=== PATIENT | female | born 1935 | race Caucasian/White ===

== ENCOUNTER → 2019-06-14 | Outpatient (CLI) | payer MEDICARE, BC ==
--- NOTE | 2019-06-14 09:53 | RAD ---
EXAM: Left hand, 3 views. HISTORY: Cellulitis. Pain. COMPARISON: None. FINDINGS: 3 views of the left hand are obtained. There is no acute fracture, dislocation or subluxation. There is slight deformity of the ulnar styloid which may be developmental or the sequela of remote trauma. There is second finger soft tissue swelling and overlying bandage material. No foreign body is seen. No osteitis is seen. IMPRESSION: Left second finger soft tissue swelling. There is no acute osseous finding. Electronically signed by: Tere Elena MD (06/14/2019 9:50 AM) [facility]
== END ==
LOC: DXRAD 08:55
PROVIDERS: ATTEND Family Medicine
DX: M25.442 Effusion, left hand (principal); L03.012 Cellulitis of left finger
CPT/HCPCS: 73130

== ENCOUNTER 2020-09-07 19:55 | Emergency (ER) | payer MEDICARE, BC ==
[~2020-09-07] VITALS: Ht 152.4 cm; Wt 40.9 kg
[~2020-09-07 19:55] MED LIST: HYDR-2759 PO
--- NOTE | 2020-09-07 21:10 | PHYS DOC ---
Past History Past Medical History: High Cholesterol, Hypertension, Hypothyroid (AISSATOU PATEL APRN) Past Surgical History: Appendectomy (AISSATOU PATEL APRN) Alcohol Use: None (AISSATOU PATEL APRN) General Adult EDM: Chief Complaint: MECHANICAL FALL HPI: HPI: Patient is a 84-year-old female who presents with right arm, leg, head pain after a fall at home. Patient states "I was standing up at the table when all of a sudden my legs went out and I fell on the ground". "When I fell I landed on my right side and I also hit the back of my head". Fall was witnessed by family. "I did not lose consciousness". Patient denies being on blood thinners. Patient is alert and oriented x3. Patient states that she was here on the this month for a fall and had just recently started PT. Patient reports pain is exacerbated by walking. Patient denies taking anything for pain or needing anything at this time. (AISSATOU PATEL APRN) Review of Systems: Review of Systems: Constitutional: Denies fever or chills Eyes: Denies change in visual acuity HENT: Denies nasal congestion or sore throat Respiratory: Denies cough or shortness of breath Cardiovascular: Denies chest pain or edema GI: Denies abdominal pain, nausea, vomiting, bloody stools or diarrhea : Denies dysuria Musculoskeletal: Reports right hip, right arm pain Integument: Denies rash Neurologic: Denies headache, focal weakness or sensory changes Endocrine: Denies polyuria or polydipsia Lymphatic: Denies swollen glands Psychiatric: Denies depression or anxiety (AISSATOU PATEL APRN) Allergies: Allergies: Allergies Coded Allergies Type Severity Reaction Last Updated Verified codeine Allergy Unknown 09/03/20 Yes (AISSATOU PATEL APRN) Physical Exam: PE: Constitutional: Well developed, well nourished, no acute distress, non-toxic appearance. [] HENT: Normocephalic, hematoma- posterior head Eyes: PERRLA, EOMI, conjunctiva normal, no discharge. [] Neck: Normal range of motion, midline tenderness of neck Cardiovascular:Heart rate regular rhythm, no murmur [] Lungs & Thorax: Bilateral breath sounds clear to auscultation [] Abdomen: Bowel sounds normal, soft, no tenderness, no masses, no pulsatile m asses. [] Skin: Left forearm multiple skin tears Back: No tenderness, no CVA tenderness. [] Extremities: Right arm tenderness, ROM intact, no edema. [] Neurologic: Alert and oriented X 3, normal motor function, normal sensory function, no focal deficits noted. [] Psychologic: Affect normal, judgement normal, mood normal. [] (AISSATOU PATEL APRN) Current Patient Data: Vital Signs: Vital Signs Date Time Temp Pulse Resp B/P (MAP) Pulse Ox O2 Delivery O2 Flow Rate FiO2 09/07/20 20:14 98.2 82 16 144/67 (92) 98 (AISSATOU PATEL APRN) EKG: EKG: [] (AISSATOU PATEL APRN) Radiology/Procedures: Radiology/Procedures: []Exam: CT head and cervical spine without contrast INDICATION: Fall, headache, neck TECHNIQUE: Sequential axial images through the head and cervical spine were o btained without the administration of IV contrast. Exposure: One or more of the following in the visualized dose reduction tech niques were utilized for this examination: 1. Automated exposure control 2. Adjustment of the MA and/or KV according to patient size 3. Use of iterative of reconstructive technique Comparisons: None FINDINGS: Head: Small amount of subarachnoid hemorrhage noted within a sulcus of the right frontal lobe superiorly seen on series 2 image 22. There is no midline shift or sulcal effacement. No acute vascular territory infarction is identified. Hanna-white distinction is preserved. The ventricular system is within normal limits without compression hydrocephalus. The basal cisterns are well maintained. Extra-axial cranial soft tissue scalp contusion overlying the right parietal region. The visualized portions of the paranasal sinuses and mastoid air cells are well-pneumatized. No acute fractures. Cervical spine: Straightening of cervical spine which may positional. Vertebral body heights are well-maintained. Fracture to the cervical spine is not identified. Multilevel spondylotic change in cervical spine with degenerative disc disease greatest at C5-C6 and C6-C7. Mild bilateral facet arthropathy noted in cervical spine. Visualized paraspinal soft tissues are unremarkable. IMPRESSION: 1. Small amount of subarachnoid hemorrhage noted within a sulcus of the right frontal lobe superiorly. No significant mass effect. 2. Negative CT C-spine for acute traumatic injury. XR RT TIBIA+FIBULA History: Reason: Fall, pelvis, right hip, upper and lower leg pain / Spl. Instructions: / History: Technique: 2 views right tibia and fibula Comparison: None. Findings: Normal alignment. No fracture. Impression: 1. No acute osseous abnormality. Electronically signed by: Juan Daniel Caro DO (09/07/2020 10:18 PM) [facility] XR SHOULDER_RIGHT 2+ VIEWS, XR HUMERUS_RT 2 VIEWS History: Reason: Fall, rt shoulder, upper and lower arm pain, hx fall 08/26/20 w/fx / Spl. Instructions: / History: Technique: 3 views right shoulder and 2 views right humerus Comparison: August 26, 2020 Findings: Right proximal humerus fracture with increased displacement of greater tuberosity fracture fragment. No dislocation. No new fracture. Impression: 1. Right proximal humerus fracture with increased displacement of greater tuberosity fracture fragment. Electronically signed by: Juan Daniel Caro DO (09/07/2020 10:14 PM) [facility] XR SHOULDER_RIGHT 2+ VIEWS, XR HUMERUS_RT 2 VIEWS History: Reason: Fall, rt shoulder, upper and lower arm pain, hx fall 08/26/20 w/fx / Spl. Instructions: / History: Technique: 3 views right shoulder and 2 views right humerus Comparison: August 26, 2020 Findings: Right proximal humerus fracture with increased displacement of greater tuberosity fracture fragment. No dislocation. No new fracture. Impression: 1. Right proximal humerus fracture with increased displacement of greater tuberosity fracture fragment. Electronically signed by: Juan Daniel Caro DO (09/07/2020 10:14 PM) [facility] XR BILATERAL HIP (WITH OR WITHOUT PELVIS) 2 VIEWS_RIGHT, XR FEMUR_RIGHT History: Reason: Fall, pelvis, right hip, upper and lower leg pain / Spl. Instructions: / History: Technique: AP view the pelvis and 2 additional views of the right hip as well as 2 views of the right femur Comparison: None. Findings: Normal alignment of the hips. No acute fracture. Lower lumbar spondylosis. Normal alignment of the femur. No fracture. Calcifications projecting over the pelvis may represent gluteal soft tissue calcifications. Impression: 1. No acute osseous abnormality. Electronically signed by: Juan Daniel Caro DO (09/07/2020 10:18 PM) [facility] XR FOREARM_RIGHT 2 VIEWS History: Reason: Fall, right forearm pain with bruising / Spl. Instructions: / History: Technique: 2 views right forearm Comparison: None. Findings: Normal alignment. No fracture. Moderate first carpometacarpal and triscaphe DJD. Irregularity of the distal radius, likely related to prior trauma. Impression: 1. No acute osseous abnormality. Electronically signed by: Juan Daniel Caro DO (09/07/2020 10:16 PM) [facility] XR BILATERAL HIP (WITH OR WITHOUT PELVIS) 2 VIEWS_RIGHT, XR FEMUR_RIGHT History: Reason: Fall, pelvis, right hip, upper and lower leg pain / Spl. Instructions: / History: Technique: AP view the pelvis and 2 additional views of the right hip as well as 2 views of the right femur Comparison: None. Findings: Normal alignment of the hips. No acute fracture. Lower lumbar spondylosis. Normal alignment of the femur. No fracture. Calcifications projecting over the pelvis may represent gluteal soft tissue calcifications. Impression: 1. No acute osseous abnormality. Electronically signed by: Juan Daniel Caro DO (09/07/2020 10:18 PM) [facility] (AISSATOU PATEL APRN) Heart Score: C/O Chest Pain: No Risk Factors: Risk Factors: DM, Current or recent (<one month) smoker, HTN, HLP, family history of CAD, obesity. Risk Scores: Score 0 - 3: 2.5% MACE over next 6 weeks - Discharge Home Score 4 - 6: 20.3% MACE over next 6 weeks - Admit for Clinical Observation Score 7 - 10: 72.7% MACE over next 6 weeks - Early Invasive Strategies (AISSATOU PATEL APRN) Course & Med Decision Making: Course & Med Decision Making Pertinent Labs and Imaging studies reviewed. (See chart for details) [] 84-year-old female presents after a fall. Patient was at home standing at her kitchen table when she fell. Patient reports her leg went out from under her. Pain to her right arm, right hip, right leg and posterior head. Family was with patient when she fell and states that she also hit the back of her head. Patient did report midline neck tenderness. Patient is not on any blood thinners. CT head and cervical spine ordered to rule out fracture or bleed. Right shoulder, right forearm, right hip and pelvis, right femur, right tib-fib x-rays ordered. Patient only reports pain on her right side. CT of head shows subarachnoid hemorrhage along with a proximal humerus fracture. Shoulder immobilizer applied. I called Dr. Granados who accepted the patient and asked me to contact trauma. I contacted Dr. Pierre with trauma who wants patient sent through the emergency room to be admitted to the hospital. Went in to discuss with patient admission plan. Patient states I am not staying here in the hospital ! I am old and it is okay if I , all of my family has already and I am tired and ready to go! Explained to patient risk of going home due to subarachnoid hemorrhage. Discussed possibility of disability or . Patient states that she understands but she is very adamant about not wanting to stay. Patient is alert and oriented. Not on blood thinners. Explained to patient she would need to sign AMA paperwork. Patient states that she will sign the paperwork needed and she will show up at [place] emergency room tomorrow in the morning and check in. Dr. Keen also called patient's PCP Dr. De Paz. Dr. De Paz offered to admit patient for observation purposes. Patient was informed but still denied. (AISSATOU PATEL APRN) Course & Med Decision Making Did not see or evaluate patient. Agree with SUPERINT[employer] GENER[employer]'s work-up and disposition per note. (ERICKA KEEN MD) Dragon Disclaimer: Dragon Disclaimer: This electronic medical record was generated, in whole or in part, using a voice recognition dictation system. (AISSATOU PATEL APRN) Departure Departure: Impression: Primary Impression: Fall Qualified Codes: W19.XXXA - Unspecified fall, initial encounter Additional Impressions: Subarachnoid hemorrhage Closed fracture of anatomical neck of right humerus Qualified Codes: S42.291A - Other displaced fracture of upper end of right humerus, initial encounter for closed fracture Disposition: LEFT AGAINST MEDICAL ADVICE Condition: STABLE Referrals: PHUC OLIVER MD (PCP) AISSATOU PATEL APRN Sep 07, 2020 21:10 ERICKA KEEN MD Sep 07, 2020 23:35
--- NOTE | 2020-09-07 21:54 | EKG ---
[address] [address] Test Date: 2020-09-07 Test Time: 20:22:36 Pat Name: ALLAN LUNA Department: Room: Gender: F Network Support Manager: : [id number] Requested By: AISSATOU PATEL Order Number: [id number] Reading MD: Measurements Intervals [place] Rate: 79 P: 90 NH: 176 QRS: -18 QRSD: 68 T: 41 QT: 352 QTc: 409 Interpretive Statements SINUS RHYTHM LEFTWARD AXIS T ABNORMALITY IN ANTEROSEPTAL LEADS ABNORMAL ECG RI6.02 No previous ECG available for comparison
--- NOTE | 2020-09-07 22:03 | RAD ---
Exam: CT head and cervical spine without contrast INDICATION: Fall, headache, neck TECHNIQUE: Sequential axial images through the head and cervical spine were obtained without the admi nistration of IV contrast. Exposure: One or more of the following in the visualized dose reduction techniques were utilized for this examination: 1. Automated exposure control 2. Adjustment of the MA and/or KV according to patient size 3. Use of iterative of reconstructive technique Comparisons: None FINDINGS: Head: Small amount of subarachnoid hemorrhage noted within a sulcus of the right frontal lobe superiorly se en on series 2 image 22. There is no midline shift or sulcal effacement. No acute vascular territory infarction is identified. Hanna-white distinction is preserved. The ventricular system is within normal limits without compression hydrocephalus. The basal cisterns are well maintained. Extra-axial cranial soft tissue scalp contusion overlying the right parietal region. The visualized p ortions of the paranasal sinuses and mastoid air cells are well-pneumatized. No acute fractures. Cervical spine: Straightening of cervical spine which may positional. Vertebral body heights are well-maintained. Fracture to the cervical spine is not identified. Multilevel spondylotic change in cervical spine with degenerative disc disease greatest at C5-C6 and C6-C7. Mild bilateral facet arthropathy noted in cervical spine. Visualized paraspinal soft tissues are unremarkable. IMPRESSION: 1. Small amount of subarachnoid hemorrhage noted within a sulcus of the right frontal lobe superiorl y. No significant mass effect. 2. Negative CT C-spine for acute traumatic injury. FOR INTERNAL CODING PURPOSES Critical result: Findings discussed with Cond at 09/07/2020 9:58 PM. RESULT CODE: (C) Electronically signed by: Erick Patel MD (09/07/2020 10:01 PM) [facility]
--- NOTE | 2020-09-07 22:17 | RAD ---
XR SHOULDER_RIGHT 2+ VIEWS, XR HUMERUS_RT 2 VIEWS History: Reason: Fall, rt shoulder, upper and lower arm pain, hx fall 08/26/20 w/fx / Spl. Instruction s: / History: Technique: 3 views right shoulder and 2 views right humerus Comparison: August 26, 2020 Findings: Right proximal humerus fracture with increased displacement of greater tuberosity fracture fragment. No dislocation. No new fracture. Impression: 1. Right proximal humerus fracture with increased displacement of greater tuberosity fracture fragme nt. Electronically signed by: Juan Daniel Caro DO (09/07/2020 10:14 PM) [facility]
--- NOTE | 2020-09-07 22:18 | RAD ---
XR FOREARM_RIGHT 2 VIEWS History: Reason: Fall, right forearm pain with bruising / Spl. Instructions: / History: Technique: 2 views right forearm Comparison: None. Findings: Normal alignment. No fracture. Moderate first carpometacarpal and triscaphe DJD. Irregularity of the distal radius, likely related to prior trauma. Impression: 1. No acute osseous abnormality. Electronically signed by: Juan Daniel Caro DO (09/07/2020 10:16 PM) [facility]
--- NOTE | 2020-09-07 22:20 | RAD ---
XR BILATERAL HIP (WITH OR WITHOUT PELVIS) 2 VIEWS_RIGHT, XR FEMUR_RIGHT History: Reason: Fall, pelvis, right hip, upper and lower leg pain / Spl. Instructions: / History: Technique: AP view the pelvis and 2 additional views of the right hip as well as 2 views of the right femur Comparison: None. Findings: Normal alignment of the hips. No acute fracture. Lower lumbar spondylosis. Normal alignment of the fe mur. No fracture. Calcifications projecting over the pelvis may represent gluteal soft tissue calcifi cations. Impression: 1. No acute osseous abnormality. Electronically signed by: Juan Daniel Caro DO (09/07/2020 10:18 PM) [facility]
--- NOTE | 2020-09-07 22:20 | RAD ---
XR BILATERAL HIP (WITH OR WITHOUT PELVIS) 2 VIEWS_RIGHT, XR FEMUR_RIGHT History: Reason: Fall, pelvis, right hip, upper and lower leg pain / Spl. Instructions: / History: Technique: AP view the pelvis and 2 additional views of the right hip as well as 2 views of the right femur Comparison: None. Findings: Normal alignment of the hips. No acute fracture. Lower lumbar spondylosis. Normal alignment of the fe mur. No fracture. Calcifications projecting over the pelvis may represent gluteal soft tissue calcifi cations. Impression: 1. No acute osseous abnormality. Electronically signed by: Juan Daniel Caro DO (09/07/2020 10:18 PM) [facility]
--- NOTE | 2020-09-07 22:21 | RAD ---
XR RT TIBIA+FIBULA History: Reason: Fall, pelvis, right hip, upper and lower leg pain / Spl. Instructions: / History: Technique: 2 views right tibia and fibula Comparison: None. Findings: Normal alignment. No fracture. Impression: 1. No acute osseous abnormality. Electronically signed by: Juan Daniel Caro DO (09/07/2020 10:18 PM) [facility]
[2020-09-07 23:15] VITALS: BP 137/60
[2020-09-07 23:48] LABS: BASO % 0 % (0-3); CALCIUM 9.2 mg/dL (8.5-10.1); CREATININE 0.7 mg/dL (0.6-1.0); EOS # 0.2 x10^3/uL (0.0-0.7); EOS % 2 % (0-3); GFR 79.3; HEMATOCRIT 34.4 % (36.0-47.0); HEMOGLOBIN 11.5 g/dL (12.0-15.5); LYMPH # 1.9 x10^3/uL (1.0-4.8); LYMPH % 17 % (24-48); MEAN CORPUSCULAR HEMOGLOBIN 33 pg (25-35); MEAN CORPUSCULAR HGB CONC 33 g/dL (31-37); MEAN CORPUSCULAR VOLUME 98 fL (79-100); MONO # 1.1 x10^3/uL (0.0-1.1); MONO % 10 % (0-9); NEUT # 8.1 x10^3uL (1.8-7.7); NEUT % 71 % (31-73); PLATELET COUNT 281 x10^3/uL (140-400); POTASSIUM 4.1 mmol/L (3.5-5.1); RED BLOOD COUNT 3.53 x10^6/uL (3.50-5.40); RED CELL DISTRIBUTION WIDTH 14.7 % (11.5-14.5); WHITE BLOOD COUNT 11.4 x10^3/uL (4.0-11.0)
== END 2020-09-07 23:20 | disposition left against medical advice (07) ==
LOC: ER 19:55
DX: S42.291A Other displaced fracture of upper end of right humerus, initial encounter for closed fracture (principal); S06.6X9A Traumatic subarachnoid hemorrhage with loss of consciousness of unspecified duration, initial encounter; S51.812A Laceration without foreign body of left forearm, initial encounter; S00.93XA Contusion of unspecified part of head, initial encounter; E78.00 Pure hypercholesterolemia, unspecified; I10 Essential (primary) hypertension; E03.9 Hypothyroidism, unspecified; Z88.5 Allergy status to narcotic agent; W18.39XA Other fall on same level, initial encounter; Y93.89 Activity, other specified; Y92.098 Other place in other non-institutional residence as the place of occurrence of the external cause; Y99.8 Other external cause status
CPT/HCPCS: 36415; 70450; 72125; 73030; 73060; 73090; 73502; 73552; 73590; 80048; 85025; 85730; 93005; 99285-25

== ENCOUNTER → 2020-09-09 | Outpatient (CLI) | payer MEDICARE, BC ==
[2020-09-07 23:15] VITALS: BP 137/60
--- NOTE | 2020-09-09 14:23 | RAD ---
CT Head without contrast 09/09/2020 2:07 PM Indication: : FELL X 2 DAYS AGO, FOLLOW UP BLEED Comparison: CT head without contrast September 08, 2019 Findings: Minimal subarachnoid hemorrhage within the superior right convexity has decreased in the in terim. No new intracranial hemorrhage is seen. No evidence of acute territorial infarct is seen. Stab le senescent atrophic changes noted. Redemonstration of patchy periventricular and deep white matter hypoattenuation which is nonspecific, but most commonly relates to chronic small vessel disease. N o mass effect or midline shift is seen. No acute osseous abnormalities are seen. Impression: 1. Interval decrease in small superior right convexity subarachnoid hemorrhage. 2. Similar senescent atrophic changes and changes of chronic small vessel disease as described CT DOSING PQRS STATEMENT: One or more of the following individualized dose reduction techniques were utilized for this examinat ion: 1. Automated exposure control 2. Adjustment of the mA and/or kV according to patient size 3. Use of iterative reconstruction technique Electronically signed by: Hamlet Gomez MD (09/09/2020 2:20 PM) [id number]
== END ==
LOC: CT 13:53
PROVIDERS: ATTEND Family Medicine
DX: I60.9 Nontraumatic subarachnoid hemorrhage, unspecified (principal); I73.9 Peripheral vascular disease, unspecified; G31.89 Other specified degenerative diseases of nervous system
CPT/HCPCS: 70450